=== PATIENT | female | born 1975 | race Two or more races ===

== ENCOUNTER 2019-03-24 08:32 | Outpatient (CLI) | payer OTHER ==
[~2019-03-24 08:32] MED LIST: ATABEX PRENATAL1 TAB; PROMETRIUM200 MG; SYNTHROID50 MCG; VISTARIL25 MG PO
== END 2019-03-24 08:34 | disposition home or self-care (01) ==
LOC: SONOGRAMA 08:32
DX: E04.2 Nontoxic multinodular goiter (principal)